=== PATIENT | female | born 1955 | race Asian ===

== ENCOUNTER 2016-11-14 12:32 | Day surgery (SDC) | payer OTHER ==
[2016-11-13 13:46] VITALS: BMI 21.1
[2016-11-14] MEDS ORDERED: MIDAZOLAM HCL 2 MG/2 ML SINGLE DOSE VIAL ONE (12:45)
[2016-11-14] MEDS ORDERED: DEXAMETHASONE SOD PHOSPHATE/PF 10 MG/ML SDV ONE (12:45)
[2016-11-14] MEDS ORDERED: ROPIVACAINE HCL 0.5% 30ML VIAL ONE (12:45)
[2016-11-14] MEDS ORDERED: PROPOFOL 20 ML ONE (14:02)
[2016-11-14] MEDS ORDERED: ALBUTEROL SO4 6.7 GM HFA INHALER IH ONE (14:29)
[2016-11-14 16:08] VITALS: TEMP 97.8
[2016-11-14 16:33] VITALS: BP 136/70; PULSE 60
[2016-11-14] MEDS ORDERED: oxyCODONE HCL 5 MG TABLET PO PRN (16:41)
[2016-11-14] MEDS ORDERED: ONDANSETRON 4 MG/2 ML VIAL IVPUSH PRN (16:41)
[2016-11-14] MEDS ORDERED: LACTATED RINGERS SOLUTION 1,000 ML IV SCH (16:45)
--- NOTE | 2016-11-15 09:42 | OP ---
DATE OF OPERATION: 11/14/2016 PREOPERATIVE DIAGNOSIS: Right comminuted displaced intraarticular distal radius fracture. POSTOPERATIVE DIAGNOSIS: Right comminuted displaced intraarticular distal radius fracture. OPERATIVE PROCEDURE: 1. Open reduction internal fixation of right comminuted intraarticular displaced distal radius fracture with internal fixation of 3 or more fragments. 2. Right brachioradialis tenotomy. SURGEON: Ying Bach MD DIE TECHNICIAN: AMOS Eric ANESTHESIA: Regional. COMPLICATIONS: None. ESTIMATED BLOOD LOSS: Minimal. INDICATIONS FOR PROCEDURE: The patient is a 61-year-old female with the above findings, indicated for operative treatment. The risks, benefits, and alternatives were discussed with the patient at length, and proper informed consent was obtained. DESCRIPTION OF PROCEDURE: After proper identification of the patient and the correct operative site, the patient was brought to the operating room and placed on the operating room table with all bony prominences well padded. Regional anesthesia and sedation were given and adequate for the procedure. Right upper extremity was prepped and draped in the usual sterile fashion. Well-padded tourniquet was placed with a sterile prep. Esmarch bandage to exsanguinate the right upper extremity. Tourniquet inflated to 250 mmHg. A longitudinal incision was made over the flexor carpi radialis tendon with distal aspect of the forearm. Incision was taken sharply through the skin with blunt and sharp dissection through the subcutaneous tissues. Flexor carpi radialis tendon along with the contents of the carpal canal was bluntly and gently retracted in ulnarward direction for the remainder of the procedure. Pronator quadratus was divided longitudinally. Distal radius was exposed and found to be highly comminuted and displaced. Radial styloid fragment was free, and in order to reduce it, it was necessary to perform a brachioradialis tenotomy which was performed in a subperiosteal fashion, taking care to protect the first dorsal compartment. This allowed the radial styloid fragment to be reduced. The pronator quadratus was also found to be ruptured, and part of it was stuck within the fracture site, and this needed to be removed. The fracture was then completely reduced and held with an Acumed Acu-Loc 2 distal radius plate with distal locking screws and proximal nonlocking screws. This provided secure stable fixation of the fracture in satisfactory position confirmed radiographically in multiple planes. Distal radioulnar joint and scapholunate intervals were stressed, and there was no evidence of instability of either of these joints. Wound was irrigated with saline and repaired in layers including the pronator quadratus with a 4-0 Vicryl and a 4-0 Monocryl sutures. Steri-Strips and sterile dressings were applied. The patient was reversed from anesthesia and brought to the recovery room in stable condition. She tolerated the procedure well. Barrington Garcia, the enrichment assistant, was integral throughout this procedure. Procedure could not have been performed without the skilled help of the enrichment assistant. YING BAHC M.D. [id number]
== END 2016-11-14 16:50 | disposition home or self-care (01) ==
LOC: FASU 12:32
PROVIDERS: ATTEND Orthopaedic Surgery Hand Surgery
PROC: 0LN50ZZ Release Right Lower Arm and Wrist Tendon, Open Approach (ICD-10-PCS; 2016-11-14)
PROC: 0PSH04Z Reposition Right Radius with Internal Fixation Device, Open Approach (ICD-10-PCS; principal; 2016-11-14 14:11)
DX: S52.531A Colles' fracture of right radius, initial encounter for closed fracture (principal); X58.XXXA Exposure to other specified factors, initial encounter; Y93.9 Activity, unspecified; Y92.9 Unspecified place or not applicable
CPT/HCPCS: 73110-TC-RT; 94760